=== PATIENT | male | born 1980 | race Caucasian/White ===

== ENCOUNTER → 2017-11-30 | Outpatient (CLI) | payer OTHER ==
[~2017-11-30] MED LIST: ALPRAZOLAM2 M1; AMOXICILLI250 MG/51 PO; AMOXICILLIN 50500 MG PO; BACTRIM DS TAB1 EACH PO; BENTYL 20 MG TA20 M1 PO; CLEOCIN HCL150 MG PO; CLEOCIN HCL300 MG PO; CLONAZEPAM; CLONAZEPAM 1 MG1 M1 PO; DOXYCYCLINE 10100 MG PO; ERYTHROMYCIN500 MG PO; FLEXERIL PO; GAS RELIEF80 MG PO; HYDROCODON-ACE1 EAC7 PO; HYDROCODON-ACE1 EACH PO; HYDROCODONE-AP1 EAC6 PO; LIDOCAINE VISC100 M1 MM; LIPITOR10 MG PO; MEDROLDOSEPACK PO; NORCO 5-325 TA1 EACH PO; ONDANSETRON HCL4 M2 PO; PAXIL40 MG; PREDNISONE 10 M10 M1 PO; PREDNISONE 20 M20 M1 PO; PRILOSEC 20 MG20 MG PO; PROAIR HFA8.5 GM INH; PROAIR HFA8.5 GM PO; PROMETHAZINE D480 ML PO; PROMS25 WY RECTAL; RANITIDINE 150150 MG PO; SEROQUEL 50 MG50 M1 NG; TESSALON PERLE100 MG PO; TRAMADOL 50 MG50 MG PO; VICODIN 5-5001 EACH PO; XANAX1 MG PO; ZOFRAN4 MG PO; ZPAK PO
== END ==
LOC: RAD 07:32
DX: K21.9 Gastro-esophageal reflux disease without esophagitis (principal); K44.9 Diaphragmatic hernia without obstruction or gangrene; K22.70 Barrett's esophagus without dysplasia; Z90.49 Acquired absence of other specified parts of digestive tract

== ENCOUNTER 2018-04-09 20:41 | Emergency (ER) | payer OTHER ==
[~2018-04-09] VITALS: Ht 182.9 cm; Wt 104.3 kg
[~2018-04-09 20:41] MED LIST changes: -BENTYL 20 MG TA20 M1 PO; -GAS RELIEF80 MG PO
[2018-04-09] MEDS ORDERED: MEDROLDOSEPACK PO (21:51)
[2018-04-09 22:23] LABS: ABSOLUTE NEUTROPHILS 12.7 thou/uL (1.4-8.2); BASOPHILS 0.4 % (0.0-2.0); EOSINOPHILS 0.2 % (0.0-3.0); HEMATOCRIT 44.9 % (42.0-52.0); LYMPHOCYTES 10.3 % (24.0-44.0); MCH 32.2 pg (26.0-34.0); MCHC 35.6 g/dL (28.0-37.0); MCV 90.5 fL (80.0-100.0); MONOCYTES 2.9 % (1.0-8.0); PLATELET COUNT 308 thou/uL (150-400); POLYS 86.2 % (36.0-66.0); RBC 4.96 mil/uL (4.50-6.00); RDW 12.5 % (10.5-14.5); WBC 14.8 thou/uL (4.0-11.0)
[2018-04-09 22:40] LABS: CALCIUM 9.3 mg/dL (8.5-10.1); POTASSIUM 4.9 mmol/L (3.5-5.1)
[2018-04-09 22:44] LABS: ALBUMIN 3.6 g/dL (3.4-5.0); DIRECT BILIRUBIN 0.1 mg/dL (<0.1-0.3); TOTAL BILIRUBIN 0.6 mg/dL (<0.1-1.0); TOTAL PROTEIN 8.2 g/dL (6.4-8.2)
[2018-04-10] MEDS ORDERED: BENTYL 20 MG TA20 M1 PO (00:33)
[2018-04-10] MEDS ORDERED: GAS RELIEF80 MG PO (00:33)
[2018-04-10 00:52] VITALS: BP 136/76
== END 2018-04-10 00:50 | disposition home or self-care (01) ==
LOC: ER 20:41
PROVIDERS: Emergency Medicine
DX: R10.12 Left upper quadrant pain (principal); K21.9 Gastro-esophageal reflux disease without esophagitis; E78.5 Hyperlipidemia, unspecified; F17.210 Nicotine dependence, cigarettes, uncomplicated; Z88.0 Allergy status to penicillin; Z88.2 Allergy status to sulfonamides; Z88.5 Allergy status to narcotic agent

== ENCOUNTER → 2018-11-03 | Outpatient (CLI) | payer OTHER ==
[~2018-11-03] MED LIST changes: +BENTYL 20 MG TA20 M1 PO; +GAS RELIEF80 MG PO
== END ==
LOC: RAD 08:36
DX: K21.0 Gastro-esophageal reflux disease with esophagitis (principal); K44.9 Diaphragmatic hernia without obstruction or gangrene

== ENCOUNTER 2018-11-08 08:49 | Emergency (ER) | payer OTHER ==
[~2018-11-08] VITALS: Ht 182.9 cm; Wt 104.3 kg
[2018-11-08] MEDS ORDERED: NAPROSYN500 MG PO (11:04)
[2018-11-08] MEDS ORDERED: NORFLEX100 MG PO (11:04)
[2018-11-08 11:42] VITALS: BP 123/84
== END 2018-11-08 11:43 | disposition home or self-care (01) ==
LOC: ER 08:49
DX: S39.012A Strain of muscle, fascia and tendon of lower back, initial encounter (principal); S13.4XXA Sprain of ligaments of cervical spine, initial encounter; S20.219A Contusion of unspecified front wall of thorax, initial encounter; E78.5 Hyperlipidemia, unspecified; K21.9 Gastro-esophageal reflux disease without esophagitis; Z87.891 Personal history of nicotine dependence; Z91.018 Allergy to other foods; Z88.5 Allergy status to narcotic agent; Z88.0 Allergy status to penicillin; Z88.2 Allergy status to sulfonamides; Z88.6 Allergy status to analgesic agent; Z90.89 Acquired absence of other organs; V89.2XXA Person injured in unspecified motor-vehicle accident, traffic, initial encounter; Y93.89 Activity, other specified; Y92.89 Other specified places as the place of occurrence of the external cause; Y99.8 Other external cause status